=== PATIENT | female | born 1985 | race Two or more races ===

== ENCOUNTER 2020-09-26 18:48 | Inpatient (IN) | payer OTHER ==
[~2020-09-26] VITALS: Ht 157.5 cm; Wt 81.2 kg
[2020-09-26] MEDS ORDERED: PRENATAL TABLE1 EAC1 PO (19:56)
== END 2020-09-30 15:17 | disposition home or self-care (01) | DRG 786 ==
LOC: OB/GYN 18:48 → LDR 18:48 → EDBD 18:48 → LDR 09-27 00:30 → OB/GYN 09-27 17:43
PROVIDERS: ADMIT Obstetrics & Gynecology; ATTEND Obstetrics & Gynecology
PROC: 4A1HXFZ Monitoring of Products of Conception, Cardiac Rhythm, External Approach (ICD-10-PCS; 2020-09-26)
PROC: 10D00Z1 Extraction of Products of Conception, Low, Open Approach (ICD-10-PCS; principal; 2020-09-27 14:00)
DX: O13.3 Gestational [pregnancy-induced] hypertension without significant proteinuria, third trimester (principal); U07.1 COVID-19; O98.52 Other viral diseases complicating childbirth; Z3A.38 38 weeks gestation of pregnancy; Z37.0 Single live birth